=== PATIENT | female | born 1980 | race Caucasian/White ===

== ENCOUNTER 2016-09-27 03:30 | Emergency (ER) | payer BC ==
[2016-09-27 03:59] VITALS: BP 116/84
[2016-09-27] MEDS ORDERED: Levofloxacin 500 MG Tab ONE (04:20)
[2016-09-27] MEDS ORDERED: Levofloxacin 250 MG/10 ML Soln ML PO STA (04:21)
--- NOTE | 2016-09-27 04:31 | EDM.PDOC ---
ED HPI GENERAL MEDICAL PROBLEM - General Chief Complaint: General Stated Complaint: jaw swelling Time Seen by Provider: 09/27/16 04:05 Source of Information: Reports: Patient History Limitations: Reports: No limitations - History of Present Illness INITIAL COMMENTS - FREE TEXT/NARRATIVE: According to patient, she had root canal done by her Dentist in [place] last to her right upper jaw, since then she has been on penicillin 2000mg daily. She claims she did run fever on Tuesday. She did have some swelling of the right side of face. But today she has been having numbness of her on the right side.lip with slightly increased swelling. No fever or chills. No nausea or vomiting. Also has noticed some pain over the right upper jaw where the procedure was done. - Related Data Allergies Allergy/AdvReac Type Severity Reaction Status Date / Time No Known Allergies Allergy Verified 04/07/14 19:16 Home Meds: Home Meds NK [No Known Home Meds] 09/27/16 [History] Social & Family History - Tobacco Use Smoking Status *Q: Current Every Day Smoker Years of Tobacco use: 20 - Alcohol Use Days Per Week of Alcohol Use: 0 - Recreational Drug Use Recreational Drug Use: No ED ROS GENERAL - Review of Systems Review Of Systems: See Below Constitutional: Denies: fever, chills HEENT: Denies: Rhinitis, Sinus problem, Throat pain, Throat swelling Respiratory: Denies: Shortness of Breath, Cough, Sputum Cardiovascular: Denies: Chest pain, Lightheadedness GI/Abdominal: Denies: Abdominal pain, Nausea, Vomiting : Denies: dysuria, flank pain Musculoskeletal: Denies: neck pain, shoulder pain, joint pain, joint swelling Skin: Denies: jaundice, pruritis, rash Neurological: Reports: Numbness. Denies: Confusion, Headache, Tingling, Difficulty Walking Psychiatric: Denies: Agitation, Anxiety ED EXAM, GENERAL - Physical Exam Exam: See Below Exam Limited By: No limitations General Appearance: alert, WD/WN, no apparent distress Eye Exam: bilateral eye: EOMI, PERRL Ears: normal external exam, normal canal, hearing grossly normal, normal TMs Ear Exam: bilateral ear: auricle normal, canal normal, TM normal Nose: normal inspection, normal mucosa, no blood Throat/Mouth: Normal inspection, Normal lips, Normal voice, No airway compromise , Other (Examination of oral cavity: There is mild erythem over the right upper gingival sulcus with serosanginous drainage with gingival swelling, seen in the right upper quadrant of the jaw around the premolar region. There is tenderness to palpation. Tender over the lower right maxila. No periorbital swelling. Normal eye movement.) Head: atraumatic, normocephalic Neck: normal inspection, supple, non-tender, full range of motion Course - Vital Signs Text/Narrative:: Apparently patient has had root canal therapy in the right upper premolar region and has been having infection. There is some drainage seen in the right upper gingival sulcus with mild swelling of the right maxillary region with tenderness. The cause of numbness in her right upper lip is secondary to irritation of the upper labial branch of the maxillary nerve from the infection.She does not have facial palsy. She probably has deep socket infection or gingival infection from the procedure. Presently she is not running high grade fevers or chills, or not having any problem with the right orbital area,her pulse is 72/minutes, Her CBC shows white count of 9.2, clinically not consistent with maxillary abscess. She is on Penicillin , I have added on Levaquin to cover for atypical infection. Pt is not in severe pain, advised motrin 800mg 3 times daily to control inflammation( avoid motrin due to increased risk of bleeding if her dentist wants to do any urgent procedure). Pt advised to followup with her Dentist in the morning. Last Recorded V/S: Last Vital Signs Temp 98.3 F 09/27/16 03:57 Pulse 73 09/27/16 03:57 Resp 12 09/27/16 03:57 BP 116/84 09/27/16 03:57 Pulse Ox 100 09/27/16 03:57 - Orders/Labs/Meds Orders: Active Orders 24 hr Category Date Time Status CBC WITH AUTO DIFF [HEME] Stat Lab 09/27/16 04:21 Ordered Levofloxacin [Levaquin] Med 09/27/16 04:21 Stat 500 mg PO NOW STA Medication Orders Levofloxacin (Levaquin) 500 mg PO NOW STA Stop: 09/27/16 04:22 Meds: Medications Generic Name Dose Route Start Last Admin Trade Name Freq PRN Reason Stop Dose Admin Levofloxacin 500 mg 09/27/16 04:21 Levaquin PO 09/27/16 04:22 NOW STA Departure - Departure Time of Disposition: 04:50 Disposition: Home, Self-Care 01 Condition: fair Clinical Impression: Tooth abscess Forms: ED Department Discharge Additional Instructions: Apparently patient has had root canal therapy in the right upper premolar region and has been having infection. There is some drainage seen in the right upper gingival sulcus with mild swelling of the right maxillary region with tenderness. The cause of numbness in her right upper lip is secondary to irritation of the upper labial branch of the maxillary nerve from the infection.She does not have facial palsy. She probably has deep socket infection or gingival infection from the procedure. Presently she is not running high grade fevers or chills, or not having any problem with the right orbital area,her pulse is 72/minutes, Her CBC shows white count of 9.2, clinically not consistent with maxillary abscess. She is on Penicillin , I have added on Levaquin to cover for atypical infection. Pt is not in severe pain, advised motrin 800mg 3 times daily to control inflammation( avoid motrin due to increased risk of bleeding if her dentist wants to do any urgent procedure). Pt advised to followup with her Dentist in the morning. - Problem List & Annotations (1) Tooth abscess SNOMED Code(s): 558506231 Code(s): K04.7 - PERIAPICAL ABSCESS WITHOUT SINUS Status: Acute Current Visit: Yes - Problem List Review Problem List Initiated/Reviewed/Updated: Yes - My Orders Last 24 Hours: My Active Orders 09/27/16 04:21 CBC WITH AUTO DIFF [HEME] Stat Levofloxacin [Levaquin] 500 mg PO NOW STA - Assessment/Plan Last 24 Hours: My Active Orders 09/27/16 04:21 CBC WITH AUTO DIFF [HEME] Stat Levofloxacin [Levaquin] 500 mg PO NOW STA Assessment:: Tooth abscess post root canal therapy Plan: Apparently patient has had root canal therapy in the right upper premolar region and has been having infection. There is some drainage seen in the right upper gingival sulcus with mild swelling of the right maxillary region with tenderness. The cause of numbness in her right upper lip is secondary to irritation of the upper labial branch of the maxillary nerve from the infection.She does not have facial palsy. She probably has deep socket infection or gingival infection from the procedure. Presently she is not running high grade fevers or chills, or not having any problem with the right orbital area,her pulse is 72/minutes, Her CBC shows white count of 9.2, clinically not consistent with maxillary abscess. She is on Penicillin , I have added on Levaquin to cover for atypical infection. Pt is not in severe pain, advised motrin 800mg 3 times daily to control inflammation( avoid motrin due to increased risk of bleeding if her dentist wants to do any urgent procedure). Pt advised to followup with her Dentist in the morning.
== END 2016-09-27 04:45 | disposition home or self-care (01) ==
LOC: LB.ED 03:30
DX: K04.7 Periapical abscess without sinus (principal); F17.200 Nicotine dependence, unspecified, uncomplicated
CPT/HCPCS: 36415; 85025; 99283; A9270